=== PATIENT | male | born 1995 | race Caucasian/White ===

== ENCOUNTER 2023-01-26 09:26 | Emergency (ER) | payer SELFPAY ==
[~2023-01-26] VITALS: Ht 177.8 cm; Wt 106.5 kg
--- NOTE | 2023-01-26 10:46 | ED General ---
General Chief Complaint: Dizziness/Syncope Stated Complaint: DIZZINESS | HEADACHES | RAT BITE 3 WEEKS AGO Nursing Triage Note: Pt presents to ER with multiple complaints: headache, dizziness, diarrhea, cough, sore throat, and increased drainage. Pt also reports being bit by a pet rat 3 weeks ago. Pt was seen and evaluated at [facility] last week for similar symptoms, reports negative strep and covid test at that time. Pt reports that he was seen and evaluated at [facility] today and was sent to ER for lab work. Source of Information: Patient Exam Limitations: No Limitations History of Present Illness Date Seen by Provider: Jan 26, 2023 Time Seen by Provider: 10:36 Allergies and Home Medications Allergies Coded Allergies: No Known Drug Allergies (Unverified , 01/26/23) Past Asjgnbn-Avkrbr-Gcioxo Hx Patient Social History Tobacco Use?: No Use of E-Cig and/or Vaping dev: No Substance use?: No Substance type: Marijuana Additional substance use comme: Reports last used approximately 8 months ago Alcohol Use?: Yes Immunizations Up To Date Influenza Vaccine Up-to-Date: No; Not Current First/Initial COVID19 Vaccinat: vaccinated x1 Past Medical History Surgery/Hospitalization HX: Depression Physical Exam Vital Signs Vital Signs - First Documented 01/26/23 09:37 Temp 37.2 Pulse 105 Resp 18 B/P (MAP) 114/77 (89) Pulse Ox 96 O2 Delivery Room Air Capillary Refill : Less Than 3 Seconds Height, Weight, BMI Height: '" Weight: lbs. oz. kg; 33.00 BMI Method: Progress/Results/Core Measures Suspected Sepsis SIRS Temperature: Pulse: 105 Respiratory Rate: 18 Laboratory Tests 01/26/23 10:58: White Blood Count 11.2H Blood Pressure 114 /77 Mean: 88 Laboratory Tests 01/26/23 10:58: Creatinine 0.77, Platelet Count 228, Total Bilirubin 1.1H Results/Orders Lab Results Laboratory Tests Test 01/26/23 10:58 Range/Units White Blood Count 11.2 H 4.3-11.0 10^3/uL Red Blood Count 4.93 4.30-5.52 10^6/uL Hemoglobin 14.3 13.3-17.7 g/dL Hematocrit 42 40-54 % Mean Corpuscular Volume 85 80-99 fL Mean Corpuscular Hemoglobin 29 25-34 pg Mean Corpuscular Hemoglobin Concent 34 32-36 g/dL Red Cell Distribution Width 12.5 10.0-14.5 % Platelet Count 228 130-400 10^3/uL Mean Platelet Volume 9.0 9.0-12.2 fL Immature Granulocyte % (Auto) 0 % Neutrophils (%) (Auto) 77 H 42-75 % Lymphocytes (%) (Auto) 13 12-44 % Monocytes (%) (Auto) 8 0-12 % Eosinophils (%) (Auto) 1 0-10 % Basophils (%) (Auto) 0 0-10 % Neutrophils # (Auto) 8.7 H 1.8-7.8 10^3/uL Lymphocytes # (Auto) 1.5 1.0-4.0 10^3/uL Monocytes # (Auto) 0.9 0.0-1.0 10^3/uL Eosinophils # (Auto) 0.2 0.0-0.3 10^3/uL Basophils # (Auto) 0.0 0.0-0.1 10^3/uL Immature Granulocyte # (Auto) 0.0 0.0-0.1 10^3/uL Sodium Level 137 135-145 MMOL/L Potassium Level 3.6 3.6-5.0 MMOL/L Chloride Level 105 98-107 MMOL/L Carbon Dioxide Level 23 21-32 MMOL/L Anion Gap 9 5-14 MMOL/L Blood Urea Nitrogen 6 L 7-18 MG/DL Creatinine 0.77 0.60-1.30 MG/DL Estimat Glomerular Filtration Rate 124 BUN/Creatinine Ratio 8 Glucose Level 85 70-105 MG/DL Calcium Level 9.0 8.5-10.1 MG/DL Corrected Calcium 9.0 8.5-10.1 MG/DL Total Bilirubin 1.1 H 0.1-1.0 MG/DL Aspartate Amino Transf (AST/SGOT) 37 H 5-34 U/L Alanine Aminotransferase (ALT/SGPT) 51 0-55 U/L Alkaline Phosphatase 89 40-136 U/L C-Reactive Protein High Sensitivity 3.11 H 0.00-0.50 MG/DL Total Protein 7.0 6.4-8.2 GM/DL Albumin 4.0 3.2-4.5 GM/DL My Orders Orders - AROLDO VALENTINE MD Cbc With Automated Diff (01/26/23 10:49) Comprehensive Metabolic Panel (01/26/23 10:49) Hs C Reactive Protein (01/26/23 10:49) Lactated Ringers (Lr 1000 Ml Iv Solution (01/26/23 11:00) Covid 19 Inhouse Test (01/26/23 11:56) Vital Signs/I&O 01/26/23 01/26/23 01/26/23 09:37 10:35 11:38 Temp 37.2 Pulse 105 91 82 Resp 18 18 18 B/P (MAP) 114/77 (89) 113/75 (88) 102/65 (77) Pulse Ox 96 96 96 O2 Delivery Room Air Room Air Room Air Capillary Refill : Less Than 3 Seconds Blood Pressure Mean: 88 Departure Impression Primary Impression: Viral syndrome Disposition: 01 HOME, SELF-CARE Condition: Improved Departure-Patient Inst. Decision time for Depature: 12:07 Referrals: [facility] [place] NO,LOCAL PHYSICIAN (PCP) Primary Care Physician Patient Instructions: Viral Syndrome (DC) Add. Discharge Instructions: Drink plenty of fluids to stay well hydrated. You can take over the counter anti-diarrheal medication for your diarrhea. Please follow packaging instructions. If you have any high fever, blood in your stool or abdominal pain, please return to the Emergency Department for re-evaluation. If your COVID test comes back positive I will contact you and let you know. You can take over the counter Ibuprofen 3 tablets with food every 6 hours for body aches/headaches. AROLDO VALENTINE MD Jan 26, 2023 10:46
[2023-01-26] MEDS ORDERED: LACTATED RINGERS 1,000 ML IV SCH (11:00)
[2023-01-26 11:03] LABS: BASOPHILS % (AUTO) 0 % (0-10); EOSINOPHILS # (AUTO) 0.2 10^3/uL (0.0-0.3); EOSINOPHILS % (AUTO) 1 % (0-10); HEMATOCRIT 42 % (40-54); HEMOGLOBIN 14.3 g/dL (13.3-17.7); LYMPHOCYTES # (AUTO) 1.5 10^3/uL (1.0-4.0); LYMPHOCYTES % (AUTO) 13 % (12-44); MEAN CORPUSCULAR HEMOGLOBIN 29 pg (25-34); MEAN CORPUSCULAR HGB CONC 34 g/dL (32-36); MEAN CORPUSCULAR VOLUME 85 fL (80-99); MONOCYTES # (AUTO) 0.9 10^3/uL (0.0-1.0); MONOCYTES % (AUTO) 8 % (0-12); NEUTROPHILS # (AUTO) 8.7 10^3/uL (1.8-7.8); NEUTROPHILS % (AUTO) 77 % (42-75); PLATELET COUNT 228 10^3/uL (130-400); WHITE BLOOD COUNT 11.2 10^3/uL (4.3-11.0)
[2023-01-26 11:19] LABS: POTASSIUM 3.6 MMOL/L (3.6-5.0)
[2023-01-26 11:23] LABS: BILIRUBIN,TOTAL 1.1 MG/DL (0.1-1.0)
[2023-01-26 11:25] LABS: CREATININE SERUM 0.77 MG/DL (0.60-1.30)
[2023-01-26 12:25] VITALS: BP 105/69
[2023-01-26] MEDS ORDERED: DOXY100C5 PO (20:50)
== END 2023-01-26 12:26 | disposition home or self-care (01) ==
LOC: ER 09:30
DX: B34.9 Viral infection, unspecified (principal); R51.9 Headache, unspecified; R42 Dizziness and giddiness; R19.7 Diarrhea, unspecified; R05.9 Cough, unspecified; Z28.311 Partially vaccinated for COVID-19; Z20.822 Contact with and (suspected) exposure to COVID-19
CPT/HCPCS: 36415; 80053; 85025; 86141; 87636

== ENCOUNTER 2023-01-26 19:43 | Emergency (ER) | payer SELFPAY ==
[~2023-01-26] VITALS: Ht 176 cm; Wt 106.0 kg
[2023-01-26 19:57] VITALS: BP 109/75
--- NOTE | 2023-01-26 20:15 | ED General ---
General Chief Complaint: Bite-Animal/Human/Insect Stated Complaint: TICK BITE Nursing Triage Note: PT AMB TO ED BY POV WITH C/O TICK BITE. PT REPORTS HE HAS HAD NAUSEA, DIARRHEA, ACHINESS OVER THE LAST WEEK. PT WAS SEEN HERE EARLIER TODAY. APPROX 20 MIN [employer], PT NOTICED A TICK BEHIND L KNEE. PT PULLED TICK OFF, BUT WAS UNABLE TO PULL THE HEAD OUT. Source of Information: Patient Exam Limitations: No Limitations History of Present Illness Date Seen by Provider: Jan 26, 2023 Time Seen by Provider: 20:04 Initial Comments 27-year-old male presents to the ER for concerns of a tick bite to his left posterior knee. He was seen here earlier today. He reports flulike symptoms and diarrhea for the last week. He reports that he was also seen at [facility], was told that this is a viral illness. States that no one else in the house has become ill. He states that tonight he found the tick behind his knee. He states he has no idea how long it has been there, states that he rarely goes outside due to the heat. He denies fevers and vomiting. Reports abdominal cramping, diarrhea, neck stiffness and headache. He reports that he generally feels the same as he did this morning when he was seen. Allergies and Home Medications Allergies Coded Allergies: No Known Drug Allergies (Unverified , 01/26/23) Patient Home Medication List Home Medication List Reviewed: Yes Doxycycline Hyclate (Doxycycline Hyclate) 100 Mg Capsule, 100 MG PO BID Prescribed by: Kenyetta Nance on 01/26/232049 Review of Systems Review of Systems Constitutional: see HPI Past Rviuskz-Lrqwzj-Lcrkpe Hx Patient Social History Tobacco Use?: No Use of E-Cig and/or Vaping dev: No Substance use?: Yes Substance type: Marijuana Substance frequency: Rarely Alcohol Use?: Yes Alcohol Frequency: Several times a month Immunizations Up To Date Influenza Vaccine Up-to-Date: No; Not Current First/Initial COVID19 Vaccinat: vaccinated x1 Second COVID19 Vaccination Michael: vaccinated x1 Third COVID19 Vaccination Date: vaccinated x1 Past Medical History Surgery/Hospitalization HX: Depression Physical Exam Vital Signs Vital Signs - First Documented 01/26/23 19:57 Temp 37.4 Pulse 97 Resp 16 B/P (MAP) 109/75 (86) Pulse Ox 97 O2 Delivery Room Air Capillary Refill : Less Than 3 Seconds Height, Weight, BMI Height: '" Weight: lbs. oz. kg; 34.00 BMI Method: General Appearance: No Apparent Distress, WD/WN Neck: Full Range of Motion, Normal Inspection, Supple Respiratory: Lungs Clear, Normal Breath Sounds, No Accessory Muscle Use, No Respiratory Distress Cardiovascular: Regular Rate, Rhythm Extremity: Normal Capillary Refill, Normal Range of Motion Neurologic/Psychiatric: Alert, No Motor/Sensory Deficits Skin: Normal Color, Warm/Dry Progress/Results/Core Measures Suspected Sepsis SIRS Temperature: Pulse: 97 Respiratory Rate: 16 Blood Pressure 109 /75 Mean: 86 Results/Orders Lab Results Laboratory Tests Test 01/26/23 20:24 Range/Units My Orders Orders - KENYETTA LUQUE APRN Tick Panel With Lyme Eia (01/26/23 20:10) Doxycycline Hyclate Tablet (Vibramycin T (01/26/23 20:45) Medications Given in ED Vital Signs/I&O 01/26/23 19:57 Temp 37.4 Pulse 97 Resp 16 B/P (MAP) 109/75 (86) Pulse Ox 97 O2 Delivery Room Air Capillary Refill : Less Than 3 Seconds Blood Pressure Mean: 86 Progress Note : Progress Note Patient seen and evaluated, resting comfortably in recliner, no acute distress. Patient had lab work completed earlier today, shows slightly elevated WBCs and slightly elevated CRP. Since patient feels generally the same as this morning, will not repeat blood work. Will order tick panel and discharged with prescription for doxycycline. First dose of doxycycline given here. Prescription sent to pharmacy. Discharge instructions and return precautions provided. Departure Impression Primary Impression: Tick bite Disposition: 01 HOME, SELF-CARE Condition: Stable Departure-Patient Inst. Decision time for Depature: 20:44 Referrals: NO,LOCAL PHYSICIAN (PCP/Family) Primary Care Physician Patient Instructions: Insect Bites and Stings ED Add. Discharge Instructions: Complete full course of antibiotic as prescribed. Follow-up with primary care provider. Return for any new, concerning, or worsening symptoms. All discharge instructions reviewed with patient and/or family. Voiced understanding. Scripts Doxycycline Hyclate (Doxycycline Hyclate) 100 Mg Capsule 100 MG PO BID for 14 Days, #28 CAP 0 Refills Prov: KENYETTA LUQUE APRN 01/26/23 KENYETTA LUQUE APRN Jan 26, 2023 20:15
[2023-01-26] MEDS ORDERED: DOXYCYCLINE 100 MG (VIBRAMYCIN) TABLET PO ONE (20:45)
[2023-01-26] MEDS ORDERED: DOXY100C5 PO (20:50)
== END 2023-01-26 20:53 ==
LOC: EDUNIT# 19:43 → ER 19:46
DX: S80.262A Insect bite (nonvenomous), left knee, initial encounter (principal); W57.XXXA Bitten or stung by nonvenomous insect and other nonvenomous arthropods, initial encounter
CPT/HCPCS: 36415; 86618; 86666; 86668; 86757; 99281